=== PATIENT | female | born 1975 | race Caucasian/White ===

== ENCOUNTER → 2023-02-01 | Outpatient (CLI) | payer BC ==
[~2023-02-01] MED LIST: ASPI81CH PO; CHLO25B PO; METO25ER PO; MULTI VITAMIN1 EACH PO
== END | disposition home or self-care (01) ==
LOC: PLD 12:52 → LAB SHORT 12:52
DX: D06.9 Carcinoma in situ of cervix, unspecified (principal); D06.0 Carcinoma in situ of endocervix
CPT/HCPCS: 88305

== ENCOUNTER → 2023-02-23 | Outpatient (CLI) | payer BC | END | disposition home or self-care (01) | LOC: LAB SHORT 14:39 → LAB 14:39 | DX: Z87.42 Personal history of other diseases of the female genital tract (principal); N87.9 Dysplasia of cervix uteri, unspecified | CPT/HCPCS: 88305 ==